=== PATIENT | female | born 2000 | race Caucasian/White ===

== ENCOUNTER 2019-02-22 18:07 | Emergency (ER) | payer OTHER ==
[2019-02-22] MEDS ORDERED: ETON1VAG7 VG (18:12)
--- NOTE | 2019-02-22 18:17 | ER Report ---
History and Physical Time Seen By MD: 18:17 Hx. of Stated Complaint: SYNCOPE, CHEST PAIN. HPI/ROS CHIEF COMPLAINT: syncope with chest pain HISTORY OF PRESENT ILLNESS: 18 year old female presents to ED after syncopal episode at work. Patient reports she passed out at work, approximately 25 minutes before arriving to the ED. Reports that prior to syncope she felt lightheaded, dizziness, blurry vision, dry mouth, nausea, sweating, chest pain, and palpitations. She felt like she was going to pass out so she sat down. Re ports she "blacked out" for what she thinks was 30 seconds. Denies hitting her head. Reports that she still feels lightheaded, with chest pain. Chest pain is located at the center of her chest and does not radiate anywhere. Denies heart palpitations at this time. Denies nausea, blurry vision at this time. Reports shortness of breath, like she can't take in a deep breath. Patient has a history of heart palpitations for the past two years. Reports her heart feels like it skips a beat. She has seen Dr. Guevara for this. Dr. Guevara wants to do a holter monitor, but she has not done this yet. REVIEW OF SYSTEMS: Constitutional: Denies fever, chills, decreased appetite. Respiratory: Reports cough that started today and dyspnea. Cardiovascular: Reports chest pain located at the center of her chest. Reports the pain is more of a pressure sensation. The pain does not radiate anywhere. The pain started just prior to her syncopal episode. Reports history of heart palpitations; currently denies heart palpitations. Gastrointestinal: Reports nausea prior to the syncopal episode. Currently no [place], no vomiting. Reports upper abdominal pain that occurred last night. The pain was relieved after drinking a sprite. Reports constipation for 3 days. Genitourinary: Reports urinary frequency this past week with minimal fluid intake. Denies hesitancy or burning on urination. Denies change in urine color. Musculoskeletal: No back pain. Neuro: Reports lightheadedness/dizziness that is worse when standing. Allergies: Coded Allergies: No Known Drug Allergies (Unverified , 02/22/19) Home Meds Active Scripts Nitrofurantoin Monohyd/M-Cryst (MACROBID 100 MG CAPSULE) 100 Mg Capsule, 100 MG PO BID for 7 Days, #14 CAPSULE Prov:AMY ZAMBRANO ORCHESTRA TEACHER 02/22/19 Reported Medications Etonogestrel/Ethinyl Estradiol (NUVARING VAGINAL RING) 1 Each Vag.ring, 1 EACH VG, VAG.RING 02/22/19 Past Medical/Surgical History Past medical history significant for fibromyalgia and chronic fatigue syndrome. No significant past surgical history. Reviewed Nurses Notes: Yes Constitutional Vital Sign - Last 24 Hours 02/22/19 02/22/19 02/22/19 02/22/19 18:07 18:10 18:10 18:22 Temp 97.2 Pulse ??? 72 57 Resp 20 61 B/P (MAP) 122/80 (94) 122/80 Pulse Ox 96 95 O2 Delivery Room Air 02/22/19 02/22/19 02/22/19 02/22/19 18:24 18:25 18:26 18:27 Pulse 64 87 Resp 20 20 B/P (MAP) 105/66 (79) 105/66 (79) 82/72 (75) 82/72 (75) Pulse Ox 95 94 O2 Delivery Room Air 02/22/19 02/22/19 02/22/19 02/22/19 18:27 18:28 18:30 18:37 Pulse 87 80 Resp 20 17 B/P (MAP) 110/74 (86) 110/74 (86) 120/66 (84) Pulse Ox 95 95 O2 Delivery Room Air 02/22/19 02/22/19 02/22/19 02/22/19 18:52 19:00 19:07 19:22 Pulse ? Resp 14 B/P (MAP) ???/??? (6695) Pulse Ox 84 02/22/19 02/22/19 02/22/19 02/22/19 19:30 19:37 19:52 19:57 Pulse 61 63 70 Resp 11 19 17 B/P (MAP) 107/65 (79) Pulse Ox 88 96 97 02/22/19 02/22/19 02/22/19 02/22/19 20:00 20:12 20:27 20:30 Pulse 68 64 Resp 14 18 B/P (MAP) 107/47 (67) 112/62 (79) Pulse Ox 96 85 02/22/19 02/22/19 20:42 20:57 Pulse 65 64 Resp 19 11 Pulse Ox 96 95 Physical Exam General Appearance: The patient is alert, has no immediate need for airway protection and no current signs of toxicity. Eyes: Pupils equal and round no injection. Respiratory: Chest is non tender to palpation, lungs are clear to auscultation. Cardiac: Bradycardia. regular rhythm. Orthostatics taken. BP while lying flat was 105/66. BP when sitting was 82/72. BP when standing was 110/74. Gastrointestinal: Abdomen is soft, no masses, bowel sounds normal. Reports tenderness to palpation of the RUQ, LUQ, and LLQ. Skin: No rashes or lesions. DIFFERENTIAL DIAGNOSIS: After history and physical exam differential diagnosis was considered for syncope, dehydration, PE, PA, UTI, Medical Decision Making Data Points Result Diagram: 02/22/19 1814 02/22/19 1814 Laboratory Hematology Test 02/22/19 18:14 02/22/19 18:33 Red Blood Count 5.29 M/uL (4.17-5.56) Mean Corpuscular Volume 86.3 fL (80.0-96.0) Mean Corpuscular Hemoglobin 28.6 pg (26.0-33.0) Mean Corpuscular Hemoglobin Concent 33.1 g/dL (32.0-36.0) Red Cell Distribution Width 13.0 % (11.5-14.5) Mean Platelet Volume 10.2 fL (7.2-11.1) Neutrophils (%) (Auto) 59.6 % (39.4-72.5) Lymphocytes (%) (Auto) 32.6 % (17.6-49.6) Monocytes (%) (Auto) 5.7 % (4.1-12.4) Eosinophils (%) (Auto) 1.4 % (0.4-6.7) Basophils (%) (Auto) 0.7 % (0.3-1.4) Nucleated RBC Relative Count (auto) 0.1 /100WBC Neutrophils # (Auto) 4.9 K/uL (2.0-7.4) Lymphocytes # (Auto) 2.7 K/uL (1.3-3.6) Monocytes # (Auto) 0.5 K/uL (0.3-1.0) Eosinophils # (Auto) 0.1 K/uL (0.0-0.5) Basophils # (Auto) 0.1 K/uL (0.0-0.1) Nucleated RBC Absolute Count (auto) 0.00 K/uL Sodium Level 138 mmol/L (137-145) Potassium Level 3.9 mmol/L (3.5-5.0) Chloride Level 107 mmol/L (98-107) Carbon Dioxide Level 22 mmol/L (22-31) Blood Urea Nitrogen 13 mg/dl (7-18) Creatinine 0.90 mg/dl (0.52-1.04) Glomerular Filtration Rate Calc > 60.0 Random Glucose 111 mg/dl (75-110) Calcium Level 9.0 mg/dl (8.4-10.2) Total Bilirubin 0.2 mg/dl (0.2-1.3) Aspartate Amino Transf (AST/SGOT) 21 U/L (0-35) Alanine Aminotransferase (ALT/SGPT) 13 U/L (0-56) Alkaline Phosphatase 69 U/L (0-126) Troponin I < 0.012 ng/ml Total Protein 7.8 g/dl (6.3-8.2) Albumin 4.4 g/dl (3.5-5.0) Human Chorionic Gonadotropin, Qual Negative (NEGATIVE) Urine Color Yellow Urine Clarity Cloudy Urine pH 5.0 pH (4.8-9.5) Urine Specific [place] 1.023 Urine Protein Negative mg/dL (NEGATIVE) Urine Glucose (UA) Negative mg/dL (NEGATIVE) Urine Ketones Negative mg/dL (NEGATIVE) Urine Blood Negative (NEGATIVE) Urine Nitrite Negative (NEGATIVE) Urine Bilirubin Negative (NEGATIVE) Urine Urobilinogen 2.0 mg/dL (0.2-1.9) Urine Leukocyte Esterase Moderate (NEGATIVE) Urine RBC 2 /HPF (0-2/HPF) Urine WBC 13 /HPF (0-5/HPF) Urine Squamous Epithelial Cells Many /LPF (</=FEW) Urine Transitional Epithelial Cells Few /LPF (NONE-FEW) Urine Bacteria Few /HPF (NONE-FEW) Urine Hyaline Casts Few /LPF (NONE-FEW) Urine Mucus Few /HPF (NONE-FEW) Chemistry Test 02/22/19 18:14 02/22/19 18:33 White Blood Count 8.2 k/uL (4.5-11.0) Red Blood Count 5.29 M/uL (4.17-5.56) Hemoglobin 15.1 g/dL (12.0-16.0) Hematocrit 45.7 % (34.0-47.0) Mean Corpuscular Volume 86.3 fL (80.0-96.0) Mean Corpuscular Hemoglobin 28.6 pg (26.0-33.0) Mean Corpuscular Hemoglobin Concent 33.1 g/dL (32.0-36.0) Red Cell Distribution Width 13.0 % (11.5-14.5) Platelet Count 265 K/uL (150-450) Mean Platelet Volume 10.2 fL (7.2-11.1) Neutrophils (%) (Auto) 59.6 % (39.4-72.5) Lymphocytes (%) (Auto) 32.6 % (17.6-49.6) Monocytes (%) (Auto) 5.7 % (4.1-12.4) Eosinophils (%) (Auto) 1.4 % (0.4-6.7) Basophils (%) (Auto) 0.7 % (0.3-1.4) Nucleated RBC Relative Count (auto) 0.1 /100WBC Neutrophils # (Auto) 4.9 K/uL (2.0-7.4) Lymphocytes # (Auto) 2.7 K/uL (1.3-3.6) Monocytes # (Auto) 0.5 K/uL (0.3-1.0) Eosinophils # (Auto) 0.1 K/uL (0.0-0.5) Basophils # (Auto) 0.1 K/uL (0.0-0.1) Nucleated RBC Absolute Count (auto) 0.00 K/uL Glomerular Filtration Rate Calc > 60.0 Calcium Level 9.0 mg/dl (8.4-10.2) Total Bilirubin 0.2 mg/dl (0.2-1.3) Aspartate Amino Transf (AST/SGOT) 21 U/L (0-35) Alanine Aminotransferase (ALT/SGPT) 13 U/L (0-56) Alkaline Phosphatase 69 U/L (0-126) Troponin I < 0.012 ng/ml Total Protein 7.8 g/dl (6.3-8.2) Albumin 4.4 g/dl (3.5-5.0) Human Chorionic Gonadotropin, Qual Negative (NEGATIVE) Urine Color Yellow Urine Clarity Cloudy Urine pH 5.0 pH (4.8-9.5) Urine Specific [place] 1.023 Urine Protein Negative mg/dL (NEGATIVE) Urine Glucose (UA) Negative mg/dL (NEGATIVE) Urine Ketones Negative mg/dL (NEGATIVE) Urine Blood Negative (NEGATIVE) Urine Nitrite Negative (NEGATIVE) Urine Bilirubin Negative (NEGATIVE) Urine Urobilinogen 2.0 mg/dL (0.2-1.9) Urine Leukocyte Esterase Moderate (NEGATIVE) Urine RBC 2 /HPF (0-2/HPF) Urine WBC 13 /HPF (0-5/HPF) Urine Squamous Epithelial Cells Many /LPF (</=FEW) Urine Transitional Epithelial Cells Few /LPF (NONE-FEW) Urine Bacteria Few /HPF (NONE-FEW) Urine Hyaline Casts Few /LPF (NONE-FEW) Urine Mucus Few /HPF (NONE-FEW) Urinalysis Test 02/22/19 18:33 Urine Color Yellow Urine Clarity Cloudy Urine pH 5.0 pH (4.8-9.5) Urine Specific [place] 1.023 Urine Protein Negative mg/dL (NEGATIVE) Urine Glucose (UA) Negative mg/dL (NEGATIVE) Urine Ketones Negative mg/dL (NEGATIVE) Urine Blood Negative (NEGATIVE) Urine Nitrite Negative (NEGATIVE) Urine Bilirubin Negative (NEGATIVE) Urine Urobilinogen 2.0 mg/dL (0.2-1.9) Urine Leukocyte Esterase Moderate (NEGATIVE) Urine RBC 2 /HPF (0-2/HPF) Urine WBC 13 /HPF (0-5/HPF) Urine Squamous Epithelial Cells Many /LPF (</=FEW) Urine Transitional Epithelial Cells Few /LPF (NONE-FEW) Urine Bacteria Few /HPF (NONE-FEW) Urine Hyaline Casts Few /LPF (NONE-FEW) Urine Mucus Few /HPF (NONE-FEW) EKG/Imaging EKG Interpretation 12 lead EKG: Rhythm: sinus bradycardia with sinus arrhythmia with a ventricular rate of 55 bpm [place]: normal QRS: normal ST segments: normal Monitor Interpretation: Sinus Bradycardia Imaging Abdominal x-ray: FINDINGS: Supine and upright views of the abdomen. Bowel gas pattern is nonobstructed nondilated. Some stool seen in the colon. Abdominal soft tissues are grossly normal without suspicious lucencies or abnormal calcifications. Lung bases are clear. No acute bony abnormality. Mild rightward convexity lumbar spine. IMPRESSION: Unremarkable exam. Chest x-ray: FINDINGS: Cardiomediastinal silhouette and pulmonary vessels within normal limits. There is no focal infiltrate or lobar consolidation. There is no pneumothorax or pleural effusion. No nodule. Upper abdomen is unremarkable. No acute bony abnormality. IMPRESSION: 1. No acute cardiopulmonary process. ED Course/Re-evaluation ED Course Patient admitted to an exam room, history and physical obtained, differentials considered. Patient presents to the ED after syncopal episode at work that happened approximately 25 minutes before arriving to the ED. Reports that prior to syncope she felt lightheaded, dizziness, blurry vision, dry mouth, nausea, sweating, chest pain, and palpitations. She felt like she was going to pass out so she sat down. Reports she "blacked out" for what she thinks was 30 seconds. Denies hitting her head. Reports that she still feels lightheaded, with chest pain. Chest pain is located at the center of her chest and does not radiate anywhere. Denies heart palpitations at this time. Reports shortness of breath, like she can't take in a deep breath. Patient has a history of heart palpitations for the past two years. Reports her heart feels like it skips a beat. She has seen Dr. Guevara for this. Dr. Guevara wants to do a holter monitor, but she has not done this yet. Reports to vaping daily and using Nuvaring for control. Patient also reports urinary frequency for the past week. Denies burning, hesitancy of urination and change in urine color. Reports upper abdominal pain that was present yesterday that was relieved with sprite. Reports constipation for the past 3 days. Heart rate bradycardia, normal rhythm, lungs clear to auscultation. Abdominal tenderness to RUQ, LUQ and LLQ to palpation. Orthostatics taken that were positive with patient going from a lying to sitting position. IV started, 1000 ml NS infusing. CBC, CMP, UA, chest x-ray, abdominal x-ray, d-dimer, EKG, HCG and troponin gathered. Troponin and d-dimer negative. No elevated WBC count. EKG kristine sinus rhythm. UA with moderate leukocyte esterase. Chest x-ray with no acute cardiopulmonary processes. Abdominal x-ray with unremarkable exam. Patient reports that after 1 L of fluid she still "fells out of it". Reports chest pressure and lightheadedness, no chest pain. Will give one more L of NS. Following the second liter of normal saline patient states that she does feel improved. She is rating her home at this time. Patient will be discharged, encouraged to increase her fluid intake. She is to take antibiotics as directed. She is to follow-up with her primary care provider and I encouraged consideration of a Holter monitor. Patient verbalized understanding and agreement with plan. Decision to Disposition Date: Feb 22, 2019 Decision to Disposition Time: 20:53 Depart Departure Latest Vital Signs Vital Signs Date Time Temp Pulse Resp B/P (MAP) Pulse Ox O2 Delivery O2 Flow Rate FiO2 02/22/19 20:57 64 11 95 02/22/19 20:30 112/62 (79) 02/22/19 18:28 Room Air 02/22/19 18:10 97.2 Impression: Primary Impression: Urinary tract infection Additional Impression: Dehydration Condition: Improved Disposition: HOME OR SELF-CARE New Scripts Nitrofurantoin Monohyd/M-Cryst (MACROBID 100 MG CAPSULE) 100 Mg Capsule 100 MG PO BID for 7 Days, #14 CAPSULE Prov: AMY ZAMBRANO 02/22/19 Patient Instructions: Urinary Tract Infection in Women (ED) Additional Instructions: Please take Macrobid twice a day for 7 days. Drink plenty of fluids. Get plenty of rest. Follow-up with Dr. Guevara for the holter monitor and if urinary symptoms persist. Return to the ED if you have chest pain, any difficulty breathing, another syncopal episode, a fever develops, your urinary symptoms don't subside, or for any other worrisome symptoms. Problem Qualifiers Primary Impression: Urinary tract infection Urinary tract infection type: acute cystitis Hematuria presence: without hematuria Qualified Codes: N30.00 - Acute cystitis without hematuria AMY ZAMBRANO Feb 22, 2019 18:17
--- NOTE | 2019-02-22 18:28 | EKG ---
[place] [facility] [place] SHAQ CENTENO : 2000 MR: [id number] V: [id number] EXAM DATE: ORDERING PHYSICIAN: AMY ZAMBRANO TECHNOLOGIST: ELLY Bazzi Reason : CP \ SYNCOPE Blood Pressure : / mmHG Vent. Rate : 055 BPM Atrial Rate : 055 BPM P-R Int : 122 ms QRS Dur : 070 ms QT Int : 402 ms P-R-T Axes : 024 054 057 degrees QTc Int : 384 ms Sinus bradycardia with sinus arrhythmia Otherwise normal ECG No previous ECGs available Confirmed by HUGO MARES ([id number]) on 02/23/2019 6:36:56 AM Referred By: KENYA Confirmed By:HUGO MARES
[2019-02-22 18:29] LABS: PLATELET COUNT, AUTOMATED 265 K/uL (150-450)
[2019-02-22] MEDS ORDERED: NS(*) 0.9% 1000 ML BAG 1,000 ML IV ONE ×2 (18:35→19:50)
--- NOTE | 2019-02-22 19:22 | RADIOLOGY IMAGING REPORT ---
FACILITY: [facility] PATIENT NAME: Dixie Boudreaux : 2000 MR: [id number] V: [id number] EXAM DATE: ORDERING PHYSICIAN: AMY ZAMBRANO TECHNOLOGIST: Location: [facility] Patient: Dixie Boudreaux : 2000 Visit/Account:[id number] Date of Sevice: 02/22/2019 2 VIEWS CHEST INDICATION: Chest pain. Syncope. Abdominal tenderness. COMPARISON: None available FINDINGS: Cardiomediastinal silhouette and pulmonary vessels within normal limits. There is no focal infiltrate or lobar consolidation. There is no pneumothorax or pleural effusion. No nodule. Upper abdomen is unremarkable. No acute bony abnormality. IMPRESSION: 1. No acute cardiopulmonary process. Report Dictated By: Den Garrido at 02/22/2019 7:16 PM Report E-Signed By: Den Garrido at 02/22/2019 7:18 PM WSN:[id number]
--- NOTE | 2019-02-22 19:23 | RADIOLOGY IMAGING REPORT ---
FACILITY: [facility] PATIENT NAME: Dixie Boudreaux : 2000 MR: [id number] V: [id number] EXAM DATE: ORDERING PHYSICIAN: AMY ZAMBRANO TECHNOLOGIST: Location: [facility] [place] Patient: Dixie Boudreaux : 2000 Visit/Account:[id number] Date of Sevice: 02/22/2019 ABDOMEN AP ERECT AND/OR DECUB INDICATION: Abdominal tenderness, syncope and chest pain. COMPARISON: None available FINDINGS: Supine and upright views of the abdomen. Bowel gas pattern is nonobstructed nondilated. S ome stool seen in the colon. Abdominal soft tissues are grossly normal without suspicious lucencies o r abnormal calcifications. Lung bases are clear. No acute bony abnormality. Mild rightward convexity lumbar spine. IMPRESSION: Unremarkable exam. Report Dictated By: Den Garrido at 02/22/2019 7:18 PM Report E-Signed By: Den Garrido at 02/22/2019 7:20 PM WSN:[id number]
[2019-02-22 20:30] VITALS: BP 112/62
[2019-02-22] MEDS ORDERED: NITR-105 PO (20:55)
[2019-02-22] MEDS ORDERED: NITROFURANTOIN MONO 100 MG PO ONE (21:05)
== END 2019-02-22 21:00 | disposition home or self-care (01) ==
LOC: ER 18:32
DX: N30.00 Acute cystitis without hematuria (principal); E86.0 Dehydration
CPT/HCPCS: 71046; 74019; 81001; 84484; 84703; 85025; 87088; 93005; 96360; 96361; 99284; J7030; 82040; 82247; 82310; 82374; 82435; 82565; 82947; 84075; 84132; 84155; 84295; 84450; 84460; 84520

== ENCOUNTER → 2019-02-28 | Outpatient (CLI) | payer OTHER ==
[~2019-02-28] MED LIST: ETON1VAG7 VG; NITR-105 PO
--- NOTE | 2019-03-03 06:36 | RT HOLTER TEST ---
FACILITY: [facility] PATIENT NAME: SHAQ CENTENO : [id number] MR: [id number] V: [id number] EXAM DATE: ORDERING PHYSICIAN: DB MYERS TECHNOLOGIST: GANESH Hook-up date: 2019-02-28 11:08:00 Duration: 45:59:00 Test Indications: TACHYCARDIA Medications: N/A 419006 QRS complexes 167 Ventricular ectopics which represent <1 % of total QRS comp. 164 Supraventricular ectopics which represent <1 % of total QRS comp. * Paced QRS complexes which represent % of total QRS comp. VENTRICULAR ECTOPY 163 Isolated 0 Bigeminal Cycles 2 Couplets 0 Runs 0 Beats in Runs * Beats LONGEST at * BPM at :: -- * Beats FASTEST at * BPM at :: -- SUPRAVENTRICULAR ECTOPY 90 Isolated 16 Couplets 11 Runs 42 Beats in Runs 7 Beats LONGEST at 86 BPM at 02:14:39 2019-03-02 5 Beats FASTEST at 90 BPM at 16:36:40 2019-02-28 HEART RATES 42 MIN at 08:19:18 2019-03-01 72 AVG 177 MAX at 20:22:58 2019-02-28 LONGEST RR 1.544 secs at 08:44:12 2019-03-01 S-T LEVELS Channel 1 -12.800 mm MIN at 11:08:00 2019-02-28 -12.800 mm MAX at 11:08:00 2019-02-28 Channel 2 -12.800 mm MIN at 11:08:00 2019-02-2812.800 mm MAX at 11:08:00 2019-02-28 Channel 3 -12.800 mm MIN at 11:08:00 2019-02-2812.800 mm MAX at 11:08:00 2019-02-28 Sinus tachycardia Occasional Premature ventricular complexes Nonspecific T wave abnormality Confirmed by HUGO MARES ([id number]) on 03/03/2019 6:36:13 AM Referred By: Overread By: HUGO MARES
== END ==
LOC: RESP 10:49
PROVIDERS: ATTEND Family Medicine
DX: R00.0 Tachycardia, unspecified (principal)
CPT/HCPCS: 93225; 93226